=== PATIENT | female | born 1990 | race Caucasian/White ===

== ENCOUNTER → 2017-11-27 | Outpatient (CLI) | payer OTHER ==
[~2017-11-27] VITALS: Ht 162.6 cm; Wt 68.3 kg
[~2017-11-27] MED LIST: ENDOCET 5-3251 EACH PO; IBUPROFEN800 MG PO; Motrin PO; PRENATAL VITAM1 EAC3 PO
[2017-11-27 17:06] VITALS: BP 111/68
== END | disposition home or self-care (01) ==
LOC: IVINF 16:53
DX: Z34.83 Encounter for supervision of other normal pregnancy, third trimester (principal); Z3A.28 28 weeks gestation of pregnancy; Z67.41 Type O blood, Rh negative
CPT/HCPCS: 96372

== ENCOUNTER 2018-02-01 22:12 | Outpatient (CLI) | payer OTHER ==
[~2018-02-01] VITALS: Ht 162.6 cm; Wt 73.5 kg
[2018-02-01 22:27] VITALS: BP 121/72
[2018-02-02 00:33] VITALS: BP 113/70
[2018-02-02 02:07] VITALS: BP 102/66
== END 2018-02-02 02:30 | disposition home or self-care (01) ==
LOC: LDRP-OP 22:12 → 2WEST 22:13 → LDRP-OP 03-17 14:18
DX: O47.1 False labor at or after 37 completed weeks of gestation (principal); Z3A.38 38 weeks gestation of pregnancy
CPT/HCPCS: 59025; G0378

== ENCOUNTER 2018-02-05 12:46 | Inpatient (IN) | payer OTHER ==
[2018-02-05] VITALS (8 sets, daily range): BP systolic 107–139; BP diastolic 55–76
[~2018-02-05] VITALS: Ht 162.6 cm; Wt 72.5 kg
[2018-02-05 13:35] LABS: BASOPHIL (%) 0.3 % (0-1); EOSINOPHIL (%) 0 % (0-5); HEMATOCRIT 35.4 % (36.0-46.0); HEMOGLOBIN 11.9 G/DL (11.9-15.5); IMMATURE GRANULOCYTE (%) 0.5 % (0.0-0.7); LYMPHOCYTE (%) 13.7 % (15-42); LYMPHOCYTE COUNT 1.7 K/uL (1.0-2.8); MCH 28.7 PG (29.0-34.0); MCHC 33.6 G/DL (30.0-36.0); MCV 85.5 FL (83-99); MONOCYTE (%) 6.1 % (3-12); MONOCYTE COUNT 0.8 K/uL (0-0.8); NEUTROPHIL (%) 79.4 % (45-76); NEUTROPHIL COUNT 9.7 K/uL (1.8-6.4); PLATELET COUNT 224 K/uL (156-360); RBC DIS.WIDTH-CV 12.6 % (11.8-14.6); RBC DIS.WIDTH-SD 39.1 % (39-53); RED BLOOD COUNT 4.14 M/uL (3.80-5.20); WHITE BLOOD COUNT 12.3 K/uL (4.1-10.2)
[2018-02-05] MEDS ORDERED: IBUPROFEN800 MG PO (14:09)
[2018-02-06 07:14] VITALS: BP 122/77
[2018-02-06 15:21] VITALS: BP 116/65
== END 2018-02-06 18:26 | disposition home or self-care (01) | DRG 775 ==
LOC: LDRP-OP 12:46 → 2WEST 12:47 → LDRP-OP 03-17 02:42
PROVIDERS: Advanced Practice Midwife
DX: O62.3 Precipitate labor (principal); O36.0930 Maternal care for other rhesus isoimmunization, third trimester, not applicable or unspecified; Z3A.38 38 weeks gestation of pregnancy; Z37.0 Single live birth
CPT/HCPCS: 59025; 83030; 85025; 86850; 86870; 86900; 86901; G0378; J2790; J7120